=== PATIENT | male | born 1990 | race African-American/Black ===

== ENCOUNTER 2020-07-08 16:33 | Emergency (ER) | payer OTHER ==
[~2020-07-08] VITALS: Ht 180.3 cm; Wt 90.7 kg
[~2020-07-08 16:33] MED LIST: CEPH-37 PO; NORPTMEDS CO
[2020-07-08 16:43] VITALS: BP 125/73
== END 2020-07-08 17:16 | disposition home or self-care (01) ==
LOC: ER 16:33
DX: K04.7 Periapical abscess without sinus (principal)